=== PATIENT | female | born 1960 | race African-American/Black ===

== ENCOUNTER 2016-09-16 11:31 | Emergency (ER) | payer MEDICAID ==
[~2016-09-16] VITALS: Ht 162.6 cm; Wt 65.8 kg
[~2016-09-16 11:31] MED LIST: TRAM50TA2
[2016-09-16 11:57] VITALS: BP 101/62
== END 2016-09-16 12:59 | disposition home or self-care (01) ==
LOC: ER 11:43
DX: J20.9 Acute bronchitis, unspecified (principal); F17.210 Nicotine dependence, cigarettes, uncomplicated

== ENCOUNTER 2017-05-25 16:47 | Emergency (ER) | payer MEDICAID ==
[~2017-05-25] VITALS: Ht 162.6 cm; Wt 95.3 kg
[2017-05-25 17:37] LABS: Basophils # (auto) 0.1 uL; Basophils % (auto) 0.7 % (0.0-2.0); Eosinophils # (auto) 0.2 uL; Eosinophils % (auto) 1.9 % (0.0-7.0); Hematocrit 35.3 % (36.0-46.0); Hemoglobin 11.5 g/dL (12.2-16.2); Lymphocytes # (auto) 2.3 uL; Lymphocytes % (auto) 23.5 % (10.0-50.0); Mean Corpuscular Hemoglobin 26.8 pg (28.0-32.0); Mean Corpuscular Hgb Conc. 32.6 g/dL (32.0-36.0); Mean Corpuscular Volume 82.1 fL (80.0-100.0); Mean Platelet Volume 7.6 fL (6.9-10.8); Neutrophils # (auto) 6.2 uL; Neutrophils % (auto) 63.9 % (37.0-80.0); Nucleated Red Blood Cells % 0.1 %; Platelet Count (auto) 373 10^3/uL (140-450); Red Cell Distribution Width 16.5 % (11.8-14.3); White Blood Cell 9.6 10^3/uL (4.4-10.8)
[2017-05-25 17:51] LABS: INR 1.07 (0.9-1.15); Partial Thromboplastin Time 27.7 sec (22.64-33.71); Prothrombin Time 11.7 sec (9.37-12.3)
[2017-05-25 18:05] LABS: Alkaline Phosphatase 89 U/L (45-117); Anion Gap 7 (5-15); Aspartate Aminotransferase 15 U/L (15-37); BUN/Creatinine Ratio 9.6; Bilirubin, Total 0.2 mg/dL (0.2-1.0); Blood Urea Nitrogen 7 mg/dL (7-18); Calcium 8.8 mg/dL (8.5-10.1); Carbon Dioxide 27 mmol/L (21-32); Chloride 102 mmol/L (98-107); GFR African American 105 mL/min; GFR Non-African American 87 mL/min; Glucose 113 mg/dL (74-106); Magnesium 2.3 mg/dL (1.6-2.6); Sodium 136 mmol/L (136-145)
[2017-05-25 18:08] LABS: Temperature: 21.3 C (20.0-25.0)
[2017-05-25 18:36] LABS: Urine Bilirubin Negative (Negative); Urine Blood 2+ /uL (Negative); Urine Color Yellow (Yellow); Urine Glucose Normal (Normal); Urine Ketone Negative (Negative); Urine Mucus FEW (None Seen); Urine Nitrite Negative (Negative); Urine RBC 67 /hpf (0 - 4); Urine Squamous Epithelial Cell FEW /hpf (<5); Urine WBC Clumps PRESENT /hpf (None Seen)
[2017-05-25] MEDS ORDERED: MORPHINE SULF INJ 2 MG/ML SYRINGE 1ML IV ONE (22:15)
[2017-05-25] MEDS ORDERED: ONDANSETRON HCL 4 MG/2 ML VIAL IV ONE (22:15)
[2017-05-26 01:36] VITALS: BP 108/53
== END 2017-05-26 02:36 | disposition home or self-care (01) ==
LOC: ER 16:56
DX: S33.5XXA Sprain of ligaments of lumbar spine, initial encounter (principal); N39.0 Urinary tract infection, site not specified; E11.9 Type 2 diabetes mellitus without complications; I10 Essential (primary) hypertension; F17.210 Nicotine dependence, cigarettes, uncomplicated; X50.1XXA Overexertion from prolonged static or awkward postures, initial encounter; Y93.B9 Activity, other involving muscle strengthening exercises; Y99.8 Other external cause status; Y92.39 Other specified sports and athletic area as the place of occurrence of the external cause
CPT/HCPCS: 36415; 71020; 80053; 81001; 83735; 83880; 84484; 85025; 85610; 85730; 93005; 96374; 96375; 99285; J2270; J2405

== ENCOUNTER 2018-06-11 02:00 | Emergency (ER) | payer MEDICAID ==
[~2018-06-11] VITALS: Ht 162.6 cm; Wt 97.5 kg
[2018-06-11 02:10] VITALS: BP 154/86
[2018-06-11] MEDS ORDERED: KETOROLAC TROMETH 60MG/2ML VIAL IM ONE (05:00)
[2018-06-11] MEDS ORDERED: cefTRIAXone SOD 1,000 MG VL IM ONE (05:00)
== END 2018-06-11 05:02 | disposition home or self-care (01) ==
LOC: EDBD 02:00 → ER 02:03
DX: N39.0 Urinary tract infection, site not specified (principal); E11.9 Type 2 diabetes mellitus without complications; I10 Essential (primary) hypertension; F17.210 Nicotine dependence, cigarettes, uncomplicated; Z79.899 Other long term (current) drug therapy
CPT/HCPCS: 96372; 99284; J0696; J1885